=== PATIENT | male | born 1970 | race American Indian/Alaskan Native ===

== ENCOUNTER 2020-09-14 05:16 | Emergency (ER) | payer SELFPAY ==
[2020-09-14 06:10] LABS: Basophils # (Auto) 0.1 K/mm3 (0.0-0.1); Basophils % (Auto) 0.8 % (0.0-1.8); Eosinophils # (Auto) 0.1 K/mm3 (0.0-0.4); Eosinophils % (Auto) 1.1 % (0.0-4.3); Hematocrit 43.7 % (35.5-45.6); Hemoglobin 14.4 gm/dl (11.8-15.2); Lymphocytes # (Auto) 1.7 K/mm3 (1.2-5.4); Lymphocytes % (Auto) 17.7 % (13.4-35.0); Mean Corpuscular HGB Conc 33 % (32-34); Mean Corpuscular Volume 88 fl (84-94); Monocytes # (Auto) 1.2 K/mm3 (0.0-0.8); Monocytes % (Auto) 12.2 % (0.0-7.3); Platelet Count 360 K/mm3 (140-440); Red Blood Count 4.96 M/mm3 (3.65-5.03); Red Cell Distribution Width 14.8 % (13.2-15.2)
[2020-09-14 06:13] LABS: Alanine Aminotransferase 7 units/L (7-56); Albumin 4.3 g/dL (3.9-5); BUN/Creatinine Ratio 13; Blood Urea Nitrogen 13 mg/dL (9-20); Calcium 9.4 mg/dL (8.4-10.2); Hemolysis Index 0
--- NOTE | 2020-09-14 06:22 | XRay Report ---
CHEST 1 VIEW 09/14/2020 6:08 AM INDICATION / CLINICAL INFORMATION: Chest Pain. COMPARISON: None available. FINDINGS: SUPPORT DEVICES: None. HEART / MEDIASTINUM: No significant abnormality. LUNGS / PLEURA: No significant pulmonary or pleural abnormality. No pneumothorax. ADDITIONAL FINDINGS: No significant additional findings. IMPRESSION: No acute abnormality. Signer Name: Mehul Longo MD Signed: 09/14/2020 6:17 AM Workstation Name: [id number]
[2020-09-14] MEDS ORDERED: ONDANSETRON 4 MG/2 ML INJ IV ONE ×2 (11:29→15:20)
[2020-09-14] MEDS ORDERED: MORPHINE 2 MG/1 ML INJ IV ONE (11:29)
--- NOTE | 2020-09-14 12:08 | Emergency Department Report ---
ED Chest Pain HPI - General Chief Complaint: Chest Pain Stated Complaint: LT SIDE CRAMPING PAIN/HARD TO BREATHE Time Seen by Provider: 09/14/20 10:31 Source: patient, EMS Mode of arrival: Stretcher Limitations: No Limitations - History of Present Illness Initial Comments: 50-year-old male, no past medical history, presents to ED with complaint of left-sided chest pain x3 days. Patient states pain is sharp, pleuritic. He denies any trauma, shortness of breath, cough, fever. Patient states pain is mainly located in his left side. Patient denies any leg pain or swelling. States pain has been worsening over the last 3 days. MD Complaint: chest pain -: days(s) (3) Onset: during rest Pain Location: left chest Severity: moderate Quality: sharp Consistency: constant Improves With: nothing Worsens With: inspiration re: denies: nausea, vomting, diaphoresis, dyspnea Other Symptoms: denies: cough, fever, leg swelling Treatments Prior to Arrival: none - Related Data Previous Rx's Medication Instructions Recorded Last Taken Type Apixaban [Eliquis] 5 mg PO BID #70 tablet 09/14/20 Unknown Rx Azithromycin [Zithromax Tri-Gregory] 500 mg PO QDAY #3 tablet 09/14/20 Unknown Rx oxyCODONE /ACETAMINOPHEN [Percocet 1 tab PO Q6HR PRN #10 tablet 09/14/20 Unknown Rx 5/325] Allergies Allergy/AdvReac Type Severity Reaction Status Date / Time No Known Allergies Allergy Unverified 09/14/20 05:19 Heart Score - HEART Score History: Slightly suspicious EKG: Non-specific Age: 45-65 Risk factors: 1-2 risk factors Troponin: < normal limit HEART Score: 3 - EKG Read Time Time EKG Completed: 05:44 EKG Read Time: 05:49 ED Review of Systems ROS: Stated complaint: LT SIDE CRAMPING PAIN/HARD TO BREATHE Other details as noted in HPI Comment: All other systems reviewed and negative Constitutional: denies: fever Respiratory: denies: cough, shortness of breath Cardiovascular: chest pain ED Past Medical Hx - Past Medical History Additional medical history: neuropathy - Social History Smoking Status: Never Smoker - Medications Home Medications: Home Medications Medication Instructions Recorded Confirmed Last Taken Type Apixaban [Eliquis] 5 mg PO BID #70 tablet 09/14/20 Unknown Rx Azithromycin [Zithromax Tri-Gregory] 500 mg PO QDAY #3 tablet 09/14/20 Unknown Rx oxyCODONE /ACETAMINOPHEN [Percocet 1 tab PO Q6HR PRN #10 tablet 09/14/20 Unknown Rx 5/325] ED Physical Exam - General Limitations: No Limitations General appearance: alert, in no apparent distress - Head Head exam: Present: atraumatic, normocephalic - Eye Eye exam: Present: normal appearance, EOMI - ENT ENT exam: Present: mucous membranes moist - Neck Neck exam: Present: normal inspection - Respiratory Respiratory exam: Present: normal lung sounds bilaterally. Absent: respiratory distress - Cardiovascular Cardiovascular Exam: Present: regular rate, normal rhythm - GI/Abdominal GI/Abdominal exam: Present: soft. Absent: distended, tenderness - Extremities Exam Extremities exam: Present: normal inspection. Absent: pedal edema, calf tenderness - Back Exam Back exam: Present: normal inspection - Neurological Exam Neurological exam: Present: alert, oriented X3 - Psychiatric Psychiatric exam: Present: normal affect, normal mood - Skin Skin exam: Present: warm, dry, intact, normal color ED Course Vital Signs 09/14/20 09/14/20 09/14/20 05:21 10:13 10:31 Temperature 98.3 F Pulse Rate 64 66 68 Respiratory 18 19 Rate Blood Pressure 151/103 160/99 O2 Sat by Pulse 97 98 97 Oximetry 09/14/20 09/14/20 09/14/20 11:01 12:31 13:27 Temperature Pulse Rate 68 Respiratory Rate Blood Pressure 154/95 170/95 173/104 O2 Sat by Pulse 98 97 74 L Oximetry 09/14/20 09/14/20 09/14/20 15:09 15:15 15:26 Temperature Pulse Rate 75 74 Respiratory 23 25 H Rate Blood Pressure 170/101 O2 Sat by Pulse 95 Oximetry 09/14/20 09/14/20 09/14/20 15:31 16:01 16:15 Temperature Pulse Rate 70 70 70 Respiratory 20 17 21 Rate Blood Pressure 153/93 143/89 143/89 O2 Sat by Pulse 96 93 Oximetry ED Medical Decision Making - Lab Data Result diagrams: 09/14/20 05:29 09/14/20 05:29 - EKG Data -: EKG Interpreted by Wy EKG shows normal: sinus rhythm, axis, intervals, QRS complexes Rate: normal - EKG Data Interpretation: other (Lateral T wave inversions) - Radiology Data Radiology results: report reviewed, image reviewed - Medical Decision Making 50-year-old male presents to ED with 3-day history of left-sided flank pain, pleuritic in nature. CTA shows questionable filling defect in a pulmonary arterial branch of the left lower lobe which could represent a small amount of clot. Additionally there is possible atelectasis versus developing pneumonia in the left upper lobe. Patient is not febrile, WBCs are normal, so this finding is most likely atelectasis. No evidence of a right heart strain. Troponin is negative x2. Patient is not hypoxic, O2 sats are normal. There is a documented O2 sat of 74%, however this was in error. Here in ED patient given pain relief and first dose of Eliquis, in addition to Rocephin for possible pneumonia that was seen on CTA. Patient does not meet inpatient criteria at this time, therefore he will be discharged with prescription for Eliquis and azithromycin. Patient also given Eliquis information packet to help with cost of the medication. Outpatient follow-up advised, return precautions given. - Differential Diagnosis Pneumothorax, PE, pneumonia Critical Care Time: Yes Critical care time in (mins) excluding proc time.: 35 Critical care attestation.: If time is entered above; I have spent that time in minutes in the direct care of this critically ill patient, excluding procedure time. Critical Care Time: 35 min ED Disposition Clinical Impression: Pulmonary embolism, Pneumonia Disposition: DC-01 TO HOME OR SELFCARE Is pt being admited?: No Condition: Stable Instructions: Pulmonary Embolism, Community-Acquired Pneumonia, Adult, Bacterial Pneumonia (ED) Prescriptions: Apixaban [Eliquis] 5 mg PO BID #70 tablet oxyCODONE /ACETAMINOPHEN [Percocet 5/325] 1 tab PO Q6HR PRN #10 tablet PRN Reason: Pain Azithromycin [Zithromax Tri-Gregory] 500 mg PO QDAY #3 tablet Referrals: [facility] [Provider Group] - 3-5 Days [facility] [Outside] - 3-5 Days [facility], [Primary Care Provider] - 3-5 Days LIZETH BERMAN MD [Staff Physician] - 3-5 Days
--- NOTE | 2020-09-14 14:29 | Cat Scan Report ---
CTA CHEST WITH CONTRAST INDICATION / CLINICAL INFORMATION: Left chest pain. TECHNIQUE: Axial CT images were obtained through the chest after injection of IV contrast. 3 plane MIP and/or 3D reconstructions were produced. All CT scans at this location are performed using CT dose reduction f or ALARA by means of automated exposure control. COMPARISON: Chest radiograph from the same date. FINDINGS: This is a significantly limited examination secondary to respiratory motion artifact. PULMONARY ARTERIES: Questionable filling defect within pulmonary arterial branches to the left lower lobe (series 4, image 261) which would represent a small burden of clot.. THORACIC AORTA: No significant abnormality. HEART: No significant abnormality. CORONARY ARTERIES: No significant calcification. MEDIASTINUM / BRIAN: No significant abnormality. PLEURA: No pleural effusion. No pneumothorax. LUNGS: Questionable airspace consolidation in the inferior left upper lobe/lingula. ADDITIONAL FINDINGS: None. UPPER ABDOMEN: No acute findings. SKELETAL STRUCTURES: No significant osseous abnormality. IMPRESSION: 1. Significantly limited examination secondary to patient respiratory motion. There is a questionable filling defect within a pulmonary arterial branch to the left lower lobe which could represent a sma ll burden of clot. 2. Questionable airspace consolidation in the inferior left upper lobe could represent atelectasis or developing pneumonia. CRITICAL RESULT: Questionable PTE Time of Discovery (WEB OPERATIONS LEAD/CDT): 1:20 PM Time of Communication (WEB OPERATIONS LEAD/CDT): 1:24 PM Licensed Practitioner Receiving Report: Milton Thomas Read Back Performed: Yes. Signer Name: Dhiraj Apple MD Signed: 09/14/2020 2:25 PM Workstation Name: [id number]
--- NOTE | 2020-09-14 14:36 | Cat Scan Report ---
CT ABDOMEN AND PELVIS WITH CONTRAST INDICATION / CLINICAL INFORMATION: L flank pain. TECHNIQUE: Axial CT images were obtained through the abdomen and pelvis following the administration of intraven ous contrast. All CT scans at this location are performed using CT dose reduction for ALARA by means of automated exposure control. COMPARISON: None available. FINDINGS: LOWER CHEST: No significant abnormality. LIVER: No significant abnormality. GALLBLADDER: No significant abnormality. PANCREAS: No significant abnormality. SPLEEN: No significant abnormality. ADRENALS: No significant abnormality. KIDNEYS / URETERS: No significant abnormality. No nephroureterolithiasis or obstructive uropathy. URINARY BLADDER: No significant abnormality. REPRODUCTIVE ORGANS: No significant abnormality. STOMACH / SMALL BOWEL: No significant abnormality. COLON: No significant abnormality. APPENDIX: No significant abnormality. PERITONEUM: No free fluid. No free air. No fluid collection. LYMPH NODES: No significant adenopathy. AORTA / ARTERIES: No significant abnormality. IVC / VEINS: No significant abnormality. SKELETAL SYSTEM: No significant abnormality. ADDITIONAL FINDINGS: None. IMPRESSION: 1. No acute abdominopelvic abnormality. Specifically, no nephroureterolithiasis or obstructive uropat hy. Signer Name: Dhiraj Apple MD Signed: 09/14/2020 2:31 PM Workstation Name: [id number]
[2020-09-14] MEDS ORDERED: ONDANSETRON 4 MG/2 ML INJ ONE (15:18)
[2020-09-14] MEDS ORDERED: MORPHINE 4 MG/1 ML INJ ONE (15:18)
[2020-09-14] MEDS ORDERED: MORPHINE 4 MG/1 ML INJ IV ONE (15:20)
[2020-09-14] MEDS ORDERED: APIXABAN 5 MG TAB PO ONE (15:42)
[2020-09-14] MEDS ORDERED: cefTRIAXone/NS 1 GM/50 ML 1 GM/50 ML BAG IV ONE (15:45)
[2020-09-14 16:09] VITALS: BP 143/89
--- NOTE | 2020-09-16 11:45 | Electrocardiograph Report ---
[facility] Test Date: 2020-09-14 Test Time: 05:44:26 Pat Name: JAD GUTIERREZ Department: Room: Gender: M [employer] Driver: KAMAR : 1970 Requested By: ED DOC Order Number: [id number] Reading MD: Jolly Don Measurements Intervals [place] Rate: 62 P: 149 FL: 189 QRS: 20 QRSD: 85 T: 124 QT: 404 QTc: 411 Interpretive Statements Sinus or ectopic atrial rhythm Left atrial enlargement No previous ECG available for comparison Electronically Signed On 09-16-2020 11:44:31 EDT by Jolly Don
== END 2020-09-14 16:40 | disposition home or self-care (01) ==
LOC: ED 05:16
DX: J18.9 Pneumonia, unspecified organism (principal); I26.99 Other pulmonary embolism without acute cor pulmonale; Z79.899 Other long term (current) drug therapy
CPT/HCPCS: 36415; 71045; 71275; 74177; 80053; 84484; 85025; 93005; 96365; 96375; 96376; 99285; J0696; J2270; J2405; Q9967